=== PATIENT | female | born 1985 | race Caucasian/White ===

== ENCOUNTER 2022-03-26 10:55 | Inpatient (IN) | payer MEDICAID ==
[~2022-03-26] VITALS: Ht 154.9 cm; Wt 98.6 kg
[~2022-03-26 10:55] MED LIST: NO HOME MEDS
[2022-03-26 11:40] LABS: BASOPHILS # (AUTO) 0.1 X10'3 (0-0.2); EOSINOPHILS # (AUTO) 0.1 X10'3 (0-0.9); EOSINOPHILS % (AUTO) 0.4 % (0-6); HEMATOCRIT 29.8 % (35.0-45.0); HEMOGLOBIN 9.8 g/dl (12.0-16.0); LYMPHOCYTES # (AUTO) 1.8 X10'3 (1.1-4.8); LYMPHOCYTES % (AUTO) 15.7 % (21-51); MEAN CORPUSCULAR HEMOGLOBIN 28.9 PG (27.0-31.0); MEAN CORPUSCULAR HGB CONC 33.1 g/dL (33.0-36.5); MEAN CORPUSCULAR VOLUME 87.5 FL (78-98); MEAN PLATELET VOLUME 7.5 FL (7.4-10.4); MONOCYTES # (AUTO) 0.6 X10'3 (0-0.9); MONOCYTES % (AUTO) 5.2 % (2-12); NEUTROPHILS # (AUTO) 9.2 X10'3 (1.8-7.7); NEUTROPHILS % (AUTO) 77.7 % (42-75); PLATELET COUNT 470 X10'3 (140-440); RED BLOOD COUNT 3.41 X10'6 (4.20-5.60); WHITE BLOOD COUNT 11.8 X10'3 (4.5-11.0)
[2022-03-26 11:58] LABS: ALANINE AMINOTRANSFERASE 18 U/L (12-78); ALBUMIN 2.8 G/DL (3.4-5.0); ALBUMIN/GLOBULIN RATIO 0.6 (1.1-1.5); ALKALINE PHOSPHATASE 65 IU/L (46-116); ANION GAP 7 (8-16); ASPARTATE AMINO TRANSFERASE 17 U/L (10-37); BILIRUBIN,TOTAL 0.2 MG/DL (0.1-1.0); BLOOD UREA NITROGEN 9 MG/DL (7-18); BUN/CREATININE RATIO 12.7 (6.6-38.0); CHLORIDE 104 MMOL/L (99-107); CREATININE 0.71 MG/DL (0.40-0.90); GLUCOSE 82 MG/DL (70-104); POTASSIUM 3.9 MMOL/L (3.5-5.1); SODIUM 138 MMOL/L (135-145); TOTAL CARBON DIOXIDE 27.2 MMOL/L (24-32); TOTAL PROTEIN 7.6 G/DL (6.4-8.2); eGFR > 90 ML/MIN
[2022-03-26] MEDS ORDERED: normal saline 1000ml 1,000 ML IV ONE (12:20)
[2022-03-26] MEDS ORDERED: vancomycin/NS 1 GM ADD-VANTAGE 250 ML IV ONE (12:20)
--- NOTE | 2022-03-26 12:33 | NUR ---
PATIENT AMBULATED TO ER BD 1 PER REQUEST, HURTS TO SIT AT THIS TIME. PATIENT TO RESTROOM.
[2022-03-26] MEDS ORDERED: ondansetron/PF 4mg/2ml inj IV PRN ×2 (12:40→15:25)
[2022-03-26] MEDS ORDERED: piperacillin/tazo 3.375gm/50ml 50 ML IV ONE (12:40)
[2022-03-26] MEDS: normal saline 1000ml 1,000 ML IV SCH ×3 (12:58→20:47)
[2022-03-26] MEDS ORDERED: ALBU90AE2 INH (13:23)
[2022-03-26] MEDS ORDERED: IBUP-1986 PO (13:23)
[2022-03-26] MEDS ORDERED: FLUO-167 PO (13:23)
[2022-03-26] MEDS ORDERED: BUPR-353 PO (13:23)
--- NOTE | 2022-03-26 14:01 | NUR ---
patient up to the bathroom.
[2022-03-26] MEDS ORDERED: morphine 4 MG/ML inj SYRINge IV ONE (14:55)
[2022-03-26] MEDS ORDERED: potassium Cl 20 mEq SR tablet PO PRN ×2 (15:25)
[2022-03-26] MEDS ORDERED: HYDROcodone/acetaminophen 5mg/325mg tablet PO PRN (15:25)
[2022-03-26] MEDS ORDERED: magnesium 4gm in 100ml NS 100 ML IV PRN (15:25)
[2022-03-26] MEDS ORDERED: potassium Cl 40MEQ/1/2NS 520ml 520 ML IV PRN (15:25)
[2022-03-26] MEDS ORDERED: acetaminophen 325mg tablet PO PRN (15:25)
[2022-03-26] MEDS ORDERED: magnesium Cl slow-release 64mg tablet PO PRN (15:25)
[2022-03-26 15:54] LABS: MAGNESIUM 2.3 MG/DL (1.5-2.4)
[2022-03-26] MEDS: docusate sod 100mg capsule PO SCH (20:00)
[2022-03-26] MEDS: K and/or MAG REPLACEMENT MC SCH (20:07)
--- NOTE | 2022-03-26 22:10 | NUR ---
Pictures in chart with measurements of abcsess right buttocks
[2022-03-27] VITALS (22 sets, daily range): BP systolic 11–140; BP diastolic 56–86
--- NOTE | 2022-03-27 00:06 | NUR ---
agree with assessment from Tiffany, student RN. made updates and changes per my charting. pt in good spirits, talking and laughing on phone. wound feels much better after surgery. PRO intact, have drained x2. dressing CDI
[2022-03-27] MEDS: normal saline 1000ml 1,000 ML IV SCH ×4 (01:22→23:53)
[2022-03-27] MEDS: morphine 2 MG/ML inj. syringe IV PRN ×3 (01:44→19:46)
[2022-03-27] MEDS: HYDROcodone/acetaminophen 10/325mg tab PO PRN ×4 (03:22→22:29)
--- NOTE | 2022-03-27 06:31 | NUR ---
Patient in room [facility]. I have received report from LES RODRIGUEZ and had the opportunity to ask questions and assume patient care.
[2022-03-27] MEDS: docusate sod 100mg capsule PO SCH ×2 (07:04→19:47)
[2022-03-27 07:22] LABS: BASOPHILS # (AUTO) 0.1 X10'3 (0-0.2); BASOPHILS % (AUTO) 0.6 % (0-1); EOSINOPHILS % (AUTO) 0.4 % (0-6); HEMOGLOBIN 8.7 g/dl (12.0-16.0); LYMPHOCYTES # (AUTO) 1.6 X10'3 (1.1-4.8); LYMPHOCYTES % (AUTO) 16.9 % (21-51); MEAN CORPUSCULAR HEMOGLOBIN 29.5 PG (27.0-31.0); MEAN CORPUSCULAR HGB CONC 33.3 g/dL (33.0-36.5); MEAN CORPUSCULAR VOLUME 88.5 FL (78-98); MEAN PLATELET VOLUME 8.4 FL (7.4-10.4); MONOCYTES # (AUTO) 0.6 X10'3 (0-0.9); MONOCYTES % (AUTO) 5.9 % (2-12); NEUTROPHILS # (AUTO) 7.1 X10'3 (1.8-7.7); NEUTROPHILS % (AUTO) 76.2 % (42-75); PLATELET COUNT 385 X10'3 (140-440); RED BLOOD COUNT 2.94 X10'6 (4.20-5.60); RED CELL DISTRIBUTION WIDTH 13.9 % (11.5-14.5); WHITE BLOOD COUNT 9.4 X10'3 (4.5-11.0)
[2022-03-27 07:23] LABS: ALBUMIN 2.3 G/DL (3.4-5.0); ANION GAP 9 (8-16); BLOOD UREA NITROGEN 6 MG/DL (7-18); BUN/CREATININE RATIO 9.2 (6.6-38.0); CALCIUM 8.2 MG/DL (8.5-10.1); CHLORIDE 107 MMOL/L (99-107); CREATININE 0.65 MG/DL (0.40-0.90); GLUCOSE 88 MG/DL (70-104); MAGNESIUM 2.4 MG/DL (1.5-2.4); POTASSIUM 3.7 MMOL/L (3.5-5.1); SODIUM 140 MMOL/L (135-145); TOTAL CARBON DIOXIDE 24.3 MMOL/L (24-32); eGFR > 90 ML/MIN
[2022-03-27] MEDS: K and/or MAG REPLACEMENT MC SCH ×2 (08:00→20:00)
--- NOTE | 2022-03-27 09:57 | NUR ---
Malnutrition consult: Pt reports some decrease in appetite r/t nausea secondary to the abscess that she was admitted for. Pt does not think she has lost a significant amount of wt from her baseline. No recent wt hx in EMR though current wt is fairly consistent w/ wts from the past years. No signs of muscle or fat wasting observed. No edema noted. On Regular diet pending PO intake. Pt does not meet minimum criteria for malnutrition at this time. Addendum: 03/27/22 at [address] Amended: Links added.
--- NOTE | 2022-03-27 10:02 | NUR ---
Patient had emesis but unable to measure due to patient throwing up in toilet.
[2022-03-27] MEDS ORDERED: vancomycin/NS 1 GM ADD-VANTAGE 250 ML IV SCH (11:05)
--- NOTE | 2022-03-27 12:02 | NUR ---
Patient down to OR.
[2022-03-27] MEDS ORDERED: fentaNYL/PF 50MCG/1 ML 2ML syringe ONE (12:35)
[2022-03-27] MEDS ORDERED: midazolam 1 mg/ML 2ml injection ONE (12:36)
[2022-03-27] MEDS ORDERED: propofol inj 20 ML IV ONE (13:03)
[2022-03-27] MEDS ORDERED: bacitracin 15gm ointment TP ONE (13:05)
--- NOTE | 2022-03-27 13:18 | NUR ---
Received from OR via ORTHO BED WITH PRAIDA , accompanied by Anesthesiologist SARAHI and report given by Anesthesiolgist. PATIENT WITH 20G PIV IN RIGHT AC RUNNING LR AT 100. MEDICATED FOR PAIN UPON ARRIVAL.SIDE LYING ANY THIS TIME FOR COMFORT.PRO DRAIN AND KERLIX DRESSINGS PRESENT. SEROSANGUENOUS DRAINAGE PRESENT AND EMPTIED. Addendum: 03/27/22 at 1402 by Paramjit Pineda RN, RN Amended: Links added.
[2022-03-27] MEDS ORDERED: proCHLORperazine 10 MG/2 ml inj IV PRN (13:30)
[2022-03-27] MEDS ORDERED: meperidine/PF 25mg/ml syringe IV PRN ×3 (13:30)
[2022-03-27] MEDS ORDERED: morphine 4 MG/ML inj SYRINge IV PRN (13:30)
[2022-03-27] MEDS ORDERED: ringers solution, lacted 1,000 ML IV SCH (13:30)
[2022-03-27] MEDS ORDERED: ondansetron/PF 4mg/2ml inj IV PRN (13:30)
[2022-03-27] MEDS ORDERED: morphine 2 MG/ML inj. syringe IV PRN (13:30)
--- NOTE | 2022-03-27 14:38 | NUR ---
REPORT CALLED TO 3RD FLOOR. MAVIS RECEIVED REPORT AND ALL QUESTIONS WERE ANSWERED. VSS. PATIENT DRESSING CDI TO RIGHT HIP. PRO IN PLACE. PATIENT TRANSPORTED TO THE FLOOR AND HOOKED TO VS AND LES GAMBLE IS PRESENT TO ACCEPT CARE. Addendum: 03/27/22 at 1449 by Paramjit Landry - LES SALDANA Amended: Links added.
[2022-03-27] MEDS: VANCOmycin 1250MG/NS 250ml Bag 250 ML IV SCH ×2 (14:52→23:53)
[2022-03-27] MEDS ORDERED: cefepime 1GM/NS ADD-VANTAGE 100 ML IV ONE (15:00)
--- NOTE | 2022-03-27 15:04 | NUR ---
Received patient back to room 352 accompanied by LES Yusuf and patient's spouse. Patient alert and oriented in no apparent acute distress and denies pain at this time. Patient post op vitals started and VSS. Large dressing to right buttock/hip with PRO, dressings CDI. Patient able to ambulate to bathroom and voided.
[2022-03-27] MEDS ORDERED: albuterol 2.5 MG/3 ML nebule NEB PRN (15:05)
--- NOTE | 2022-03-27 18:34 | NUR ---
Problems reprioritized. Patient report given, questions answered & plan of care reviewed with LES Fitch.
--- NOTE | 2022-03-27 20:30 | NUR ---
agree with assessment from Tiffany, nursing informatics clinical analyst. variations from her assess is documented.
[2022-03-28 02:00] VITALS: BP 111/65
[2022-03-28] MEDS: HYDROcodone/acetaminophen 10/325mg tab PO PRN ×4 (02:49→23:48)
--- NOTE | 2022-03-28 03:38 | NUR ---
pt ambulatory - refuses scd's at this time.
[2022-03-28 06:00] VITALS: BP 132/71
[2022-03-28] MEDS: morphine 2 MG/ML inj. syringe IV PRN ×3 (06:04→16:59)
--- NOTE | 2022-03-28 06:15 | NUR ---
reported to days. noted pt PRO output total and pain medication routine. pt just received morphine. dressing CDI
--- NOTE | 2022-03-28 06:26 | NUR ---
Patient in room [facility]. I have received report from Little SALDANA and had the opportunity to ask questions and assume patient care.
[2022-03-28 06:30] LABS: BASOPHILS % (AUTO) 0.7 % (0-1); EOSINOPHILS # (AUTO) 0.1 X10'3 (0-0.9); EOSINOPHILS % (AUTO) 1.4 % (0-6); HEMATOCRIT 27.1 % (35.0-45.0); LYMPHOCYTES # (AUTO) 1.5 X10'3 (1.1-4.8); MEAN CORPUSCULAR HEMOGLOBIN 29.3 PG (27.0-31.0); MEAN CORPUSCULAR HGB CONC 33.1 g/dL (33.0-36.5); MEAN CORPUSCULAR VOLUME 88.4 FL (78-98); MEAN PLATELET VOLUME 7.8 FL (7.4-10.4); MONOCYTES # (AUTO) 0.5 X10'3 (0-0.9); MONOCYTES % (AUTO) 6.9 % (2-12); NEUTROPHILS # (AUTO) 4.7 X10'3 (1.8-7.7); PLATELET COUNT 381 X10'3 (140-440); RED BLOOD COUNT 3.06 X10'6 (4.20-5.60); RED CELL DISTRIBUTION WIDTH 13.8 % (11.5-14.5); WHITE BLOOD COUNT 6.9 X10'3 (4.5-11.0)
[2022-03-28 06:51] LABS: ALBUMIN 2.1 G/DL (3.4-5.0); ANION GAP 7 (8-16); BLOOD UREA NITROGEN 5 MG/DL (7-18); BUN/CREATININE RATIO 7.6 (6.6-38.0); CALCIUM 8.3 MG/DL (8.5-10.1); CHLORIDE 106 MMOL/L (99-107); CREATININE 0.66 MG/DL (0.40-0.90); GLUCOSE 96 MG/DL (70-104); MAGNESIUM 2.2 MG/DL (1.5-2.4); POTASSIUM 3.7 MMOL/L (3.5-5.1); SODIUM 140 MMOL/L (135-145); TOTAL CARBON DIOXIDE 26.7 MMOL/L (24-32); eGFR > 90 ML/MIN
[2022-03-28] MEDS: normal saline 1000ml 1,000 ML IV SCH ×2 (07:25→13:14)
[2022-03-28] MEDS: K and/or MAG REPLACEMENT MC SCH ×2 (08:00→20:00)
[2022-03-28] MEDS: docusate sod 100mg capsule PO SCH ×2 (08:45→19:57)
[2022-03-28 10:00] VITALS: BP 112/63
[2022-03-28] MEDS: VANCOmycin 1250MG/NS 250ml Bag 250 ML IV SCH (13:15)
--- NOTE | 2022-03-28 17:48 | NUR ---
Dr. Lala was in to see patient and aware PRO drain not staying compressed/suctioned although bulb has minimal amount of drainage bulb reinflates. Dr. Lala stated it was ok and no new orders. Will continue to monitor.
[2022-03-28 18:00] VITALS: BP 118/50
--- NOTE | 2022-03-28 18:38 | NUR ---
Problems reprioritized. Patient report given, questions answered & plan of care reviewed with Little SALDANA/ Caroline Paster Supervisor.
[2022-03-28 22:00] VITALS: BP 120/52
[2022-03-28] MEDS ORDERED: VANCOMYCIN LEVEL IV ONE (23:30)
[2022-03-29] MEDS: VANCOmycin 1250MG/NS 250ml Bag 250 ML IV SCH (00:18)
[2022-03-29] MEDS: morphine 2 MG/ML inj. syringe IV PRN (02:20)
[2022-03-29] MEDS: normal saline 1000ml 1,000 ML IV SCH ×2 (03:25→04:57)
[2022-03-29] MEDS: HYDROcodone/acetaminophen 10/325mg tab PO PRN ×4 (04:57→17:22)
[2022-03-29 06:00] VITALS: BP 135/71
--- NOTE | 2022-03-29 06:30 | NUR ---
reported to days. noted pt just received norco. PRO bulb suction works at times
--- NOTE | 2022-03-29 06:42 | NUR ---
Patient in room [facility]. I have received report from Little and had the opportunity to ask questions and assume patient care.
[2022-03-29] MEDS: K and/or MAG REPLACEMENT MC SCH (06:48)
[2022-03-29 07:03] LABS: BASOPHILS # (AUTO) 0.1 X10'3 (0-0.2); BASOPHILS % (AUTO) 1.1 % (0-1); EOSINOPHILS # (AUTO) 0.1 X10'3 (0-0.9); HEMATOCRIT 25.5 % (35.0-45.0); HEMOGLOBIN 8.5 g/dl (12.0-16.0); LYMPHOCYTES # (AUTO) 1.7 X10'3 (1.1-4.8); LYMPHOCYTES % (AUTO) 29.8 % (21-51); MEAN CORPUSCULAR HEMOGLOBIN 29.2 PG (27.0-31.0); MEAN CORPUSCULAR HGB CONC 33.4 g/dL (33.0-36.5); MEAN CORPUSCULAR VOLUME 87.2 FL (78-98); MONOCYTES # (AUTO) 0.3 X10'3 (0-0.9); MONOCYTES % (AUTO) 5.9 % (2-12); NEUTROPHILS # (AUTO) 3.5 X10'3 (1.8-7.7); NEUTROPHILS % (AUTO) 61.2 % (42-75); PLATELET COUNT 400 X10'3 (140-440); RED BLOOD COUNT 2.92 X10'6 (4.20-5.60); WHITE BLOOD COUNT 5.7 X10'3 (4.5-11.0)
[2022-03-29 07:13] LABS: ALBUMIN 2.1 G/DL (3.4-5.0); ANION GAP 8 (8-16); BLOOD UREA NITROGEN 6 MG/DL (7-18); BUN/CREATININE RATIO 9.5 (6.6-38.0); CALCIUM 8.1 MG/DL (8.5-10.1); CHLORIDE 108 MMOL/L (99-107); CREATININE 0.63 MG/DL (0.40-0.90); GLUCOSE 89 MG/DL (70-104); MAGNESIUM 2.1 MG/DL (1.5-2.4); POTASSIUM 3.7 MMOL/L (3.5-5.1); SODIUM 143 MMOL/L (135-145); TOTAL CARBON DIOXIDE 26.6 MMOL/L (24-32); eGFR > 90 ML/MIN
[2022-03-29] MEDS: docusate sod 100mg capsule PO SCH (08:46)
[2022-03-29 10:00] VITALS: BP 142/47
[2022-03-29] MEDS ORDERED: CEPH-585 PO (10:55)
[2022-03-29] MEDS ORDERED: VANCOMYCIN 1,500MG in normal saline IV soln 300 ML IV SCH (12:00)
--- NOTE | 2022-03-29 13:23 | NUR ---
PAGER ID: [phone] MESSAGE: Sara Stephens in [id number] - Pt requesting pain meds for home. -[facility] [id number]
[2022-03-29] MEDS ORDERED: HYDR-3965 PO ×2 (13:46→14:17)
--- NOTE | 2022-03-29 15:10 | NUR ---
Per Dr Barrett, Dr Lala' office will call in pt's DC meds, and asked that pt's preferred pharmacy is relayed to Chey at Dr Lala office. Pt stated she wanted her meds filled at [facility] in [place]. Chey was notified.
[2022-03-29] MEDS ORDERED: ALBUTEROL SULFATE INH PRN (17:35)
[2022-03-29] MEDS ORDERED: FLUoxetine 20mg capsule PO SCH (17:35)
[2022-03-30] MEDS ORDERED: buPROPion SR 150mg tablet PO SCH (08:00)
[2022-03-30] MEDS ORDERED: VANCOMYCIN LEVEL IV ONE (23:30)
== END 2022-03-29 18:40 | disposition home or self-care (01) | DRG 383 ==
LOC: ER 10:57 → ED HOLD 12:42 → SUR 3N 03-27 02:40
PROVIDERS: ADMIT Internal Medicine; ATTEND Internal Medicine
PROC: 0Y9000Z Drainage of Right Buttock with Drainage Device, Open Approach (ICD-10-PCS; principal; 2022-03-27 12:42)
DX: L02.31 Cutaneous abscess of buttock (principal); D64.9 Anemia, unspecified; F12.90 Cannabis use, unspecified, uncomplicated; S70.01XA Contusion of right hip, initial encounter; F17.210 Nicotine dependence, cigarettes, uncomplicated; F20.9 Schizophrenia, unspecified; W18.39XA Other fall on same level, initial encounter; L03.317 Cellulitis of buttock; Z20.822 Contact with and (suspected) exposure to COVID-19; F32.A Depression, unspecified; F41.9 Anxiety disorder, unspecified; Z79.899 Other long term (current) drug therapy; Z82.5 Family history of asthma and other chronic lower respiratory diseases; Z98.891 History of uterine scar from previous surgery; Y93.89 Activity, other specified; Y92.89 Other specified places as the place of occurrence of the external cause; Y99.8 Other external cause status; Z71.6 Tobacco abuse counseling
CPT/HCPCS: 36415; 71045; 80048; 80053; 80202; 82948; 83735; 85025; 87070; 87075; 87077; 87081; 87102; 87186; 87811; 96365; 99285; A4618; A6253; A6258; A6446; A6449; A7000; G0378; J0692; J2175; J2250; J2270; J2543; J2704; J3010; J3370; J7030; J7040; J7120